=== PATIENT | female | born 1935 | race Caucasian/White ===

== ENCOUNTER 2017-08-13 07:28 | Emergency (ER) | payer OTHER ==
[~2017-08-13] VITALS: Ht 167.6 cm; Wt 72.6 kg
[~2017-08-13 07:28] MED LIST: ASPI325 PO; ASPI325B; Aspir 8181 MG; B 12; CALC; CENESTIN; CIPR500 PO; CITRACAL + D E1 EACH PO; CITRACAL + D M1 EACH PO; CLOP75 PO; DIAZ10 PO; ERGO50000; ESTR2 PO; HYDACE5 PO; HYDR1TAB94 PO; Hydrocodone-Ap1 EA23 PO; IRON150C PO; LANS15EC PO; LEVFLO500 PO; LISHYD2025 PO; LISI20 PO; LISINOPRIL PO; METR500 PO; OMEP20ER PO; PANT40 PO; PROACE100; PROM25 PO; TRIA80TC TOP; [UNRECOGNIZED DRUG - OTHER]
[2017-08-13] MEDS ORDERED: ESCI10 PO (07:43)
[2017-08-13] MEDS ORDERED: SPIRONOLACTONE PO (07:44)
[2017-08-13] MEDS ORDERED: LEXAPRO PO (07:44)
[2017-08-13] MEDS ORDERED: HYDROCODONE PO (07:45)
[2017-08-13] MEDS ORDERED: IBUP800 PO (09:09)
[2017-08-13] MEDS ORDERED: Robaxin-750750 MG PO (09:09)
== END 2017-08-13 09:47 | disposition home or self-care (01) ==
LOC: ER 07:28
DX: R51 Headache (principal); M47.892 Other spondylosis, cervical region; Z88.0 Allergy status to penicillin; Z79.899 Other long term (current) drug therapy
CPT/HCPCS: 72040; 96372; 99283; J1885

== ENCOUNTER 2017-11-01 03:48 | Emergency (ER) | payer OTHER ==
[~2017-11-01] VITALS: Ht 167.6 cm; Wt 68.0 kg
[~2017-11-01 03:48] MED LIST changes: +ESCI10 PO; +HYDROCODONE PO; +IBUP800 PO; +LEXAPRO PO; +Robaxin-750750 MG PO; +SPIRONOLACTONE PO
[2017-11-01] MEDS ORDERED: IBUP600 PO (04:44)
[2017-11-01] MEDS ORDERED: Cyclobenzaprine5 MG PO (04:44)
== END 2017-11-01 05:15 | disposition home or self-care (01) ==
LOC: ER 03:48
DX: G89.29 Other chronic pain (principal); M54.2 Cervicalgia; Z88.0 Allergy status to penicillin; Z79.899 Other long term (current) drug therapy; Z79.891 Long term (current) use of opiate analgesic; F17.210 Nicotine dependence, cigarettes, uncomplicated
CPT/HCPCS: 96372; 99283; J1885; J3010